=== PATIENT | female | born 1955 | race Caucasian/White ===

== ENCOUNTER 2017-07-09 07:27 | Inpatient (IN) ==
[2017-07-09] MEDS ORDERED: SODIUM CHLORIDE 0.9% 1,000 ML IV STA (09:19)
[2017-07-09] MEDS ORDERED: cefOXitin 2,000 MG in SYRINGE 1 EACH IV ONE ×2 (09:24→10:00)
[2017-07-09] MEDS: LACTATED RINGERS 1,000 ML IV SCH ×4 (10:10→18:40)
[2017-07-09] MEDS ORDERED: LIDOCAINE 1%/EPI INJ 20 ML VIAL ONE (10:45)
[2017-07-09] MEDS ORDERED: BUPIVACAINE 0.25% 50 ML VIAL ONE (10:45)
[2017-07-09] MEDS ORDERED: TISSUE ADHESIVE 1 EACH APPLICATOR TOP ONE (10:45)
[2017-07-09] MEDS ORDERED: SUGAMMADEX 200 MG/2 ML VIAL IV ONE (11:31)
[2017-07-09] MEDS ORDERED: SEVOFLURANE 1 UNIT/15 MINUTE INH ONE (11:50)
[2017-07-09] MEDS ORDERED: ePHEDrine 50 MG/ML AMP ONE (11:50)
[2017-07-09] MEDS ORDERED: MIDAZOLAM 2 MG/2 ML VIAL ONE (11:50)
[2017-07-09] MEDS ORDERED: PROPOFOL 200 MG/20 ML VIAL IV ONE (11:50)
[2017-07-09] MEDS ORDERED: ONDANSETRON 4 MG/2 ML VIAL ONE ×2 (11:50→12:06)
[2017-07-09] MEDS ORDERED: DEXAMETHASONE 10 MG/1 ML VIAL ONE (11:50)
[2017-07-09] MEDS ORDERED: fentaNYL 100 MCG/2 ML VIAL ONE (11:50)
[2017-07-09] MEDS ORDERED: SUCCINYLCHOLINE 200 MG/10 ML VIAL ONE (11:51)
[2017-07-09] MEDS ORDERED: GLYCOPYRROLATE 0.4 MG/2 ML VIAL ONE (11:51)
[2017-07-09] MEDS ORDERED: LACTATED RINGERS 2,000 ML IV ONE (11:51)
[2017-07-09] MEDS ORDERED: KETOROLAC 30 MG/1 ML VIAL ONE (11:51)
[2017-07-09] MEDS ORDERED: ROCURONIUM 100 MG/10 ML VIAL IV ONE (11:51)
[2017-07-09] MEDS ORDERED: NEOSTIGMINE 10 MG/10 ML VIAL ONE (11:51)
[2017-07-09] MEDS ORDERED: ONDANSETRON 4 MG/2 ML VIAL IV PRN ×2 (12:03→12:55)
[2017-07-09] MEDS ORDERED: HYDROmorphone 2 MG/1 ML VIAL IV PRN (12:03)
[2017-07-09] MEDS ORDERED: HYDROmorphone 2 MG/1 ML VIAL ONE (12:06)
[2017-07-09] MEDS ORDERED: LACTATED RINGERS 1,000 ML IV SCH (12:30)
[2017-07-09] MEDS ORDERED: PROMETHAZINE 25 MG/1 ML VIAL IM PRN (12:55)
[2017-07-09] MEDS ORDERED: KETOROLAC 15 MG/1 ML VIAL IV SCH (12:55)
[2017-07-09] MEDS ORDERED: ALBUTEROL 2.5 MG/3 ML NEB RESP TX PRN (15:00)
[2017-07-09] MEDS: KETOROLAC 15 MG/1 ML VIAL IV SCH (17:45)
[2017-07-09] MEDS: BUDESONIDE/FORMOTEROL 160-4.5 INHALER 6 GM INH SCH (21:23)
[2017-07-10] MEDS: KETOROLAC 15 MG/1 ML VIAL IV SCH ×4 (00:49→17:50)
[2017-07-10] MEDS: LACTATED RINGERS 1,000 ML IV SCH ×3 (02:43→19:45)
[2017-07-10] MEDS: LEVOTHYROXINE 75 MCG TABLET PO SCH (06:37)
[2017-07-10] MEDS: ENOXAPARIN 40 MG/0.4 ML SYRINGE SUBCUT SCH (06:37)
[2017-07-10 07:14] LABS: Basophils % 0.2 % (0.0-0.8); Eosinophils # 0.1 10*3/uL (0.0-0.87); Eosinophils % 0.4 % (0.00-10.9); Hematocrit 37.4 VOL% (35.7-47.0); Hemoglobin 12.2 GM/DL (12.0-16.0); Immature Granulocytes % 0.4 %; Immature Granulocytes Absolute 0.07 #; Lymphocytes # 2.1 10*3/uL (1.4-4.0); Mean Corpuscular HGB Conc 32.6 GM/DL (32-36); Mean Corpuscular Hemoglobin 30 PG (27-34); Mean Corpuscular Volume 91.9 FL (87-102); Monocytes # 1.1 10*3/uL (0.11-0.8); Monocytes % 6.5 % (1.7-12.7); Neutrophils % 80.5 % (38.7-73.9); Platelet Count 241 T/CUMM (130-400); Red Blood Count 4.07 MC/CUMM (3.8-5.5); Red Cell Distribution Width 13.5 % (9.3-17.3); White Blood Count 17.4 T/CUMM (4-12)
[2017-07-10 07:49] LABS: Calcium 9.2 MG/DL (8.5-10.1); Osmolality,Calculated 282.3 MOS/KG (273-304); Potassium 4.1 MMOL/L (3.5-5.1)
[2017-07-10] MEDS: amLODIPine 10 MG TABLET PO SCH (09:38)
[2017-07-10] MEDS: PANTOPRAZOLE 40 MG TABLET PO SCH (09:38)
[2017-07-10] MEDS: BUDESONIDE/FORMOTEROL 160-4.5 INHALER 6 GM INH SCH ×2 (09:38→21:11)
[2017-07-10] MEDS: ROSUVASTATIN 20 MG TABLET PO SCH (09:38)
[2017-07-10] MEDS: HYDROmorphone 2 MG/1 ML VIAL IV PRN ×2 (11:56→22:24)
[2017-07-11] MEDS: KETOROLAC 15 MG/1 ML VIAL IV SCH ×2 (00:46→06:08)
[2017-07-11] MEDS: LACTATED RINGERS 1,000 ML IV SCH (03:46)
[2017-07-11 05:44] LABS: Basophils # 0.1 10*3/uL (0.0-0.2); Basophils % 0.6 % (0.0-0.8); Eosinophils # 0.4 10*3/uL (0.0-0.87); Eosinophils % 4.2 % (0.00-10.9); Hematocrit 37.2 VOL% (35.7-47.0); Hemoglobin 12.2 GM/DL (12.0-16.0); Immature Granulocytes % 0.4 %; Immature Granulocytes Absolute 0.04 #; Lymphocytes # 2.9 10*3/uL (1.4-4.0); Lymphocytes % 28.5 % (21.3-54.2); Mean Corpuscular HGB Conc 32.8 GM/DL (32-36); Mean Corpuscular Hemoglobin 30 PG (27-34); Mean Corpuscular Volume 91.4 FL (87-102); Mean Platelet Volume 10.5 FL (9.6-12.0); Monocytes # 1.1 10*3/uL (0.11-0.8); Monocytes % 10.4 % (1.7-12.7); Neutrophils # 5.8 10*3/uL (1.4-7.4); Neutrophils % 55.9 % (38.7-73.9); Platelet Count 243 T/CUMM (130-400); Red Blood Count 4.07 MC/CUMM (3.8-5.5); White Blood Count 10.3 T/CUMM (4-12)
[2017-07-11] MEDS: ENOXAPARIN 40 MG/0.4 ML SYRINGE SUBCUT SCH (06:09)
[2017-07-11] MEDS: LEVOTHYROXINE 75 MCG TABLET PO SCH (06:09)
[2017-07-11 06:18] LABS: Osmolality,Calculated 287.7 MOS/KG (273-304); Potassium 4.1 MMOL/L (3.5-5.1)
[2017-07-11 08:35] VITALS: BP 127/67
[2017-07-11] MEDS: BUDESONIDE/FORMOTEROL 160-4.5 INHALER 6 GM INH SCH (09:27)
[2017-07-11] MEDS: PANTOPRAZOLE 40 MG TABLET PO SCH (09:29)
[2017-07-11] MEDS: ROSUVASTATIN 20 MG TABLET PO SCH (09:29)
[2017-07-11] MEDS: amLODIPine 10 MG TABLET PO SCH (09:29)
== END 2017-07-11 11:45 | disposition home or self-care (01) | DRG 337 ==
LOC: EDUNIT# → EDBD → N.ED 07:27 → N.3E 09:59 → N.EDINP 11:27 → N.3E 12:54
PROVIDERS: ADMIT Surgery; ATTEND Surgery

== ENCOUNTER 2019-05-01 09:20 | Inpatient (IN) ==
[2019-05-01] MEDS ORDERED: AMINOPHYLLINE 250 MG in SODIUM CHLORIDE 0.9% 100 ML IV ONE (11:00)
[2019-05-01] MEDS ORDERED: ONDANSETRON 4 MG/2 ML VIAL IV PRN (11:04)
[2019-05-01] MEDS ORDERED: INFLUENZA VIRUS VACCINE 0.5 ML SYRINGE IM ONE (11:20)
[2019-05-01] MEDS: methylPREDNISolone SOD SUC 40 MG/1 ML VIAL IV SCH ×2 (12:03→23:23)
[2019-05-01] MEDS: ACETAMINOPHEN 325 MG TABLET PO PRN ×2 (13:12→20:51)
[2019-05-01] MEDS: ALBUTEROL 2 MG TABLET PO SCH (13:18)
[2019-05-01 13:33] LABS: Basophils # 0.1 10*3/uL (0.0-0.2); Basophils % 0.6 % (0.0-0.8); Eosinophils # 0.2 10*3/uL (0.0-0.87); Eosinophils % 1.5 % (0.00-10.9); Hematocrit 42.6 VOL% (35.7-47.0); Immature Granulocytes % 0.6 %; Immature Granulocytes Absolute 0.07 #; Lymphocytes # 4.1 10*3/uL (1.4-4.0); Lymphocytes % 35.1 % (21.3-54.2); Mean Corpuscular HGB Conc 32.9 GM/DL (32-36); Mean Corpuscular Volume 89.3 FL (87-102); Mean Platelet Volume 9.8 FL (9.6-12.0); Monocytes % 8.2 % (1.7-12.7); Platelet Count 266 T/CUMM (130-400); Red Blood Count 4.77 MC/CUMM (3.8-5.5); Red Cell Distribution Width 14.5 % (9.3-17.3); White Blood Count 11.6 T/CUMM (4-12)
[2019-05-01 13:55] LABS: Alanine Aminotransferase 38 U/L (13-56); Albumin 3.3 G/DL (3.4-5.0); Alkaline Phosphatase 94 U/L (45-117); Aspartate Amino Transferase 29 U/L (0-37); Bilirubin,Total < 0.39 MG/DL (0.2-1.0); Blood Urea Nitrogen 13 MG/DL (7-18); Calcium 9.1 MG/DL (8.5-10.1); Estimated Glom Filtration Rate 48 ML/MIN; Glucose 156 MG/DL (74-106); Osmolality,Calculated 279.5 MOS/KG (273-304); Total Protein 6.8 G/DL (6.4-8.3)
[2019-05-01] MEDS: HYDROcodone/HOMATROPINE 5 ML UDCUP PO PRN (14:40)
[2019-05-01] MEDS: AMINOPHYLLINE 500 MG in SODIUM CHLORIDE 0.9% 480 ML IV SCH (15:25)
[2019-05-01 16:09] LABS: Apearance,Urine CLEAR (Clear); Bilirubin,Urine Negative (Negative); Blood, Urine Negative (Negative); Glucose,Urine (UA) Negative (Negative); Ketones,Urine Negative (Negative); Nitrite,Urine Negative (Negative); Protein,Urine Negative; Squamous Epithelial Cell,Urine Occasional /HPF (0-10); Urine Color Yellow (Yellow); Urine Specific Gravity 1.008 (1.001-1.035); Urine Urobilinogen < 2.0 EU/DL (0.2-1.0)
[2019-05-01] MEDS: ALBUTEROL/IPRATROPIUM 3 ML NEB RESP TX SCH ×3 (18:27→23:00)
[2019-05-01] MEDS: MONTELUKAST 10 MG TABLET PO SCH (20:50)
[2019-05-01] MEDS: RANITIDINE 150 MG TABLET PO SCH (20:50)
[2019-05-01] MEDS: GABAPENTIN 100 MG CAPSULE PO SCH (20:51)
[2019-05-01] MEDS: PANTOPRAZOLE 40 MG TABLET PO SCH (20:51)
[2019-05-02] MEDS: ALBUTEROL 2 MG TABLET PO SCH ×3 (00:43→14:01)
[2019-05-02] MEDS: ALBUTEROL/IPRATROPIUM 3 ML NEB RESP TX SCH ×4 (03:45→16:12)
[2019-05-02 05:40] LABS: Basophils % 0.1 % (0.0-0.8); Hematocrit 42.1 VOL% (35.7-47.0); Hemoglobin 13.6 GM/DL (12.0-16.0); Immature Granulocytes % 1.1 %; Immature Granulocytes Absolute 0.18 #; Lymphocytes % 12.4 % (21.3-54.2); Mean Corpuscular HGB Conc 32.3 GM/DL (32-36); Mean Platelet Volume 10.2 FL (9.6-12.0); Monocytes % 3.9 % (1.7-12.7); Neutrophils % 82.5 % (38.7-73.9); Platelet Count 275 T/CUMM (130-400); Red Blood Count 4.68 MC/CUMM (3.8-5.5); Red Cell Distribution Width 14.5 % (9.3-17.3)
[2019-05-02 05:56] LABS: Albumin 3.2 G/DL (3.4-5.0); Bilirubin,Total 0.4 MG/DL (0.2-1.0); Calcium 9.1 MG/DL (8.5-10.1); Osmolality,Calculated 287.3 MOS/KG (273-304); Total Protein 6.8 G/DL (6.4-8.3)
[2019-05-02] MEDS: LEVOTHYROXINE 88 MCG TABLET PO SCH (06:03)
[2019-05-02 06:08] LABS: Risk Ratio 1.84
[2019-05-02] MEDS ORDERED: PANTOPRAZOLE 40 MG TABLET PO SCH (09:00)
[2019-05-02] MEDS: MONTELUKAST 10 MG TABLET PO SCH ×2 (09:23→21:16)
[2019-05-02] MEDS: GABAPENTIN 100 MG CAPSULE PO SCH ×2 (09:23→21:17)
[2019-05-02] MEDS: ROSUVASTATIN 20 MG TABLET PO SCH (09:23)
[2019-05-02] MEDS: PANTOPRAZOLE 40 MG TABLET PO SCH ×2 (09:23→21:14)
[2019-05-02] MEDS: METOPROLOL SUCCINATE XL 50 MG TABLET PO SCH (09:23)
[2019-05-02] MEDS: RANITIDINE 150 MG TABLET PO SCH ×2 (09:23→21:14)
[2019-05-02] MEDS: amLODIPine 10 MG TABLET PO SCH (09:24)
[2019-05-02] MEDS: ACETAMINOPHEN 325 MG TABLET PO PRN (09:36)
[2019-05-02] MEDS: HYDROcodone/HOMATROPINE 5 ML UDCUP PO PRN ×3 (09:37→21:28)
[2019-05-02] MEDS: methylPREDNISolone SOD SUC 40 MG/1 ML VIAL IV SCH ×2 (11:23→23:52)
[2019-05-02] MEDS: DORNASE ALFA 2.5 MG/2.5 ML VIAL RESP TX SCH ×2 (11:46→20:44)
[2019-05-02] MEDS: BENZONATATE 100 MG CAPSULE PO SCH ×2 (15:20→21:16)
[2019-05-02] MEDS: ENOXAPARIN 40 MG/0.4 ML SYRINGE SUBCUT SCH (15:21)
[2019-05-02] MEDS ORDERED: IPRATROPIUM 500 MCG/2.5 ML NEB RESP TX PRN (16:26)
[2019-05-02] MEDS: IPRATROPIUM 500 MCG/2.5 ML NEB RESP TX SCH (20:38)
[2019-05-02] MEDS: AMINOPHYLLINE 500 MG in SODIUM CHLORIDE 0.9% 480 ML IV SCH (21:45)
[2019-05-03] MEDS: IPRATROPIUM 500 MCG/2.5 ML NEB RESP TX SCH ×4 (00:11→19:28)
[2019-05-03 05:51] LABS: Basophils % 0.2 % (0.0-0.8); Hematocrit 42.3 VOL% (35.7-47.0); Hemoglobin 13.7 GM/DL (12.0-16.0); Immature Granulocytes % 1.6 %; Immature Granulocytes Absolute 0.37 #; Lymphocytes # 2.2 10*3/uL (1.4-4.0); Lymphocytes % 9.6 % (21.3-54.2); Mean Corpuscular HGB Conc 32.4 GM/DL (32-36); Mean Corpuscular Volume 91.2 FL (87-102); Mean Platelet Volume 10.4 FL (9.6-12.0); Monocytes % 4.8 % (1.7-12.7); Neutrophils % 83.8 % (38.7-73.9); Platelet Count 259 T/CUMM (130-400); Red Blood Count 4.64 MC/CUMM (3.8-5.5); Red Cell Distribution Width 15.3 % (9.3-17.3); White Blood Count 22.6 T/CUMM (4-12)
[2019-05-03 06:00] LABS: Bilirubin,Total 0.4 MG/DL (0.2-1.0); Calcium 9.6 MG/DL (8.5-10.1); Osmolality,Calculated 286.1 MOS/KG (273-304); Total Protein 6.6 G/DL (6.4-8.3)
[2019-05-03] MEDS: LEVOTHYROXINE 88 MCG TABLET PO SCH (06:15)
[2019-05-03 06:18] LABS: Lymphocytes 8 % (20-55); Platelet Estimate Normal; Segmented Neutrophils 90 % (50-85); Total Cells Counted 100
[2019-05-03 06:19] LABS: Polychromasia Slight
[2019-05-03] MEDS: DORNASE ALFA 2.5 MG/2.5 ML VIAL RESP TX SCH ×2 (08:05→19:28)
[2019-05-03] MEDS: GABAPENTIN 100 MG CAPSULE PO SCH ×2 (09:26→20:47)
[2019-05-03] MEDS: METOPROLOL SUCCINATE XL 50 MG TABLET PO SCH (09:26)
[2019-05-03] MEDS: amLODIPine 10 MG TABLET PO SCH (09:27)
[2019-05-03] MEDS: RANITIDINE 150 MG TABLET PO SCH ×2 (09:27→20:47)
[2019-05-03] MEDS: MONTELUKAST 10 MG TABLET PO SCH ×2 (09:27→20:47)
[2019-05-03] MEDS: BENZONATATE 100 MG CAPSULE PO SCH ×3 (09:27→20:47)
[2019-05-03] MEDS: PANTOPRAZOLE 40 MG TABLET PO SCH ×2 (09:27→20:48)
[2019-05-03] MEDS: ROSUVASTATIN 20 MG TABLET PO SCH (09:27)
[2019-05-03] MEDS: methylPREDNISolone SOD SUC 40 MG/1 ML VIAL IV SCH ×2 (11:23→22:40)
[2019-05-03] MEDS: MEROPENEM 500 MG in SODIUM CHLORIDE 0.9% 100 ML IV SCH ×2 (11:25→17:48)
[2019-05-03] MEDS: HYDROcodone/HOMATROPINE 5 ML UDCUP PO PRN ×2 (11:30→22:40)
[2019-05-03] MEDS: ENOXAPARIN 40 MG/0.4 ML SYRINGE SUBCUT SCH (16:19)
[2019-05-03] MEDS: AMINOPHYLLINE 500 MG in SODIUM CHLORIDE 0.9% 480 ML IV SCH (18:00)
[2019-05-04] MEDS: IPRATROPIUM 500 MCG/2.5 ML NEB RESP TX SCH ×4 (00:14→19:04)
[2019-05-04] MEDS: MEROPENEM 500 MG in SODIUM CHLORIDE 0.9% 100 ML IV SCH ×4 (02:40→23:09)
[2019-05-04 05:40] LABS: Basophils % 0.2 % (0.0-0.8); Hemoglobin 12.8 GM/DL (12.0-16.0); Immature Granulocytes % 2.9 %; Immature Granulocytes Absolute 0.54 #; Lymphocytes # 2.3 10*3/uL (1.4-4.0); Lymphocytes % 12.4 % (21.3-54.2); Mean Corpuscular Volume 91.7 FL (87-102); Mean Platelet Volume 9.9 FL (9.6-12.0); Monocytes % 5.7 % (1.7-12.7); Neutrophils % 78.8 % (38.7-73.9); Platelet Count 271 T/CUMM (130-400); Red Blood Count 4.36 MC/CUMM (3.8-5.5); Red Cell Distribution Width 15.4 % (9.3-17.3); White Blood Count 18.5 T/CUMM (4-12)
[2019-05-04 05:48] LABS: Calcium 8.8 MG/DL (8.5-10.1); Osmolality,Calculated 286.1 MOS/KG (273-304)
[2019-05-04 06:08] LABS: Eosinophils 1 % (0-10); Hypochromasia 1+; Lymphocytes 9 % (20-55); Platelet Estimate Adequate; Segmented Neutrophils 86 % (50-85); Total Cells Counted 100
[2019-05-04] MEDS: LEVOTHYROXINE 88 MCG TABLET PO SCH (06:46)
[2019-05-04] MEDS: DORNASE ALFA 2.5 MG/2.5 ML VIAL RESP TX SCH ×2 (08:46→19:11)
[2019-05-04] MEDS: amLODIPine 10 MG TABLET PO SCH (10:19)
[2019-05-04] MEDS: METOPROLOL SUCCINATE XL 50 MG TABLET PO SCH (10:19)
[2019-05-04] MEDS: ROSUVASTATIN 20 MG TABLET PO SCH (10:20)
[2019-05-04] MEDS: RANITIDINE 150 MG TABLET PO SCH ×2 (10:20→21:21)
[2019-05-04] MEDS: THEOPHYLLINE ER 300 MG TABLET PO SCH ×2 (10:20→16:27)
[2019-05-04] MEDS: MONTELUKAST 10 MG TABLET PO SCH ×2 (10:21→21:22)
[2019-05-04] MEDS: BENZONATATE 100 MG CAPSULE PO SCH ×3 (10:21→21:21)
[2019-05-04] MEDS: GABAPENTIN 100 MG CAPSULE PO SCH ×2 (10:21→21:21)
[2019-05-04] MEDS: PANTOPRAZOLE 40 MG TABLET PO SCH ×2 (10:21→21:21)
[2019-05-04] MEDS: methylPREDNISolone SOD SUC 40 MG/1 ML VIAL IV SCH ×2 (12:43→23:16)
[2019-05-04] MEDS: HYDROcodone/HOMATROPINE 5 ML UDCUP PO PRN (14:55)
[2019-05-04] MEDS: ENOXAPARIN 40 MG/0.4 ML SYRINGE SUBCUT SCH (14:56)
[2019-05-05] MEDS: IPRATROPIUM 500 MCG/2.5 ML NEB RESP TX SCH ×2 (00:24→07:24)
[2019-05-05] MEDS: MEROPENEM 500 MG in SODIUM CHLORIDE 0.9% 100 ML IV SCH ×2 (05:14→09:38)
[2019-05-05 05:26] LABS: Basophils # 0.1 10*3/uL (0.0-0.2); Basophils % 0.4 % (0.0-0.8); Hematocrit 43.1 VOL% (35.7-47.0); Immature Granulocytes % 4.3 %; Immature Granulocytes Absolute 0.76 #; Lymphocytes # 2.6 10*3/uL (1.4-4.0); Lymphocytes % 14.7 % (21.3-54.2); Mean Corpuscular HGB Conc 32.5 GM/DL (32-36); Mean Corpuscular Volume 91.1 FL (87-102); Monocytes % 5.9 % (1.7-12.7); NRBC # 0.02 10*3/uL; Neutrophils % 74.7 % (38.7-73.9); Platelet Count 290 T/CUMM (130-400); Red Blood Count 4.73 MC/CUMM (3.8-5.5); Red Cell Distribution Width 15.4 % (9.3-17.3); White Blood Count 17.6 T/CUMM (4-12)
[2019-05-05 05:59] LABS: Calcium 8.4 MG/DL (8.5-10.1)
[2019-05-05 06:15] LABS: Band Neutrophils 2 % (0-10); Lymphocytes 15 % (20-55); Segmented Neutrophils 73 % (50-85); Total Cells Counted 100
[2019-05-05 06:16] LABS: Anisocytosis 1+; Platelet Estimate Normal
[2019-05-05] MEDS: LEVOTHYROXINE 88 MCG TABLET PO SCH (06:20)
[2019-05-05] MEDS: DORNASE ALFA 2.5 MG/2.5 ML VIAL RESP TX SCH (07:24)
[2019-05-05] MEDS: ROSUVASTATIN 20 MG TABLET PO SCH (09:32)
[2019-05-05] MEDS: BENZONATATE 100 MG CAPSULE PO SCH (09:32)
[2019-05-05] MEDS: GABAPENTIN 100 MG CAPSULE PO SCH (09:32)
[2019-05-05] MEDS: RANITIDINE 150 MG TABLET PO SCH (09:32)
[2019-05-05] MEDS: PANTOPRAZOLE 40 MG TABLET PO SCH (09:32)
[2019-05-05] MEDS: METOPROLOL SUCCINATE XL 50 MG TABLET PO SCH (09:33)
[2019-05-05] MEDS: MONTELUKAST 10 MG TABLET PO SCH (09:33)
[2019-05-05] MEDS: amLODIPine 10 MG TABLET PO SCH (09:33)
[2019-05-05] MEDS: THEOPHYLLINE ER 300 MG TABLET PO SCH (09:33)
[2019-05-05 09:47] VITALS: BP 118/72
== END 2019-05-05 11:31 | disposition home or self-care (01) | DRG 191 ==
LOC: N.2W → SUATTDRO 09:47 → N.5E 05-03 13:51
PROVIDERS: ADMIT Internal Medicine; ATTEND Internal Medicine

== ENCOUNTER 2021-11-07 10:20 | Inpatient (IN) ==
[2021-11-07] MEDS ORDERED: methylPREDNISolone SOD SUC 125 MG/2 ML VIAL IV STA (10:54)
[2021-11-07] MEDS ORDERED: ALBUTEROL/IPRATROPIUM 3 ML NEB RESP TX STA (10:54)
[2021-11-07 11:32] LABS: Arterial Base Excess iSTAT 1 MMOL/L (-2.5-2.5); Arterial Bicarbonate iSTAT 25.2 MMOL/L (20-26); Arterial O2 Saturation iSTAT 93 % (95-100); Arterial PCO2 iSTAT 39 MM HG (35-48); Arterial PO2 iSTAT 66 MM HG (80-95); Arterial Total CO2 iSTAT 26 MMO/L (23-27); Arterial pH iSTAT 7.414 (7.35-7.45)
[2021-11-07 11:47] LABS: Basophils % 0.4 % (0.0-0.8); Eosinophils # 0.1 10*3/uL (0.0-0.87); Eosinophils % 1.1 % (0.00-10.9); Hemoglobin 12.7 GM/DL (12.0-16.0); Immature Granulocytes % 1.7 %; Immature Granulocytes Absolute 0.16 #; Lymphocytes # 2.6 10*3/uL (1.4-4.0); Lymphocytes % 27.4 % (21.3-54.2); Mean Corpuscular Volume 85.1 FL (87-102); Mean Platelet Volume 9.4 FL (9.6-12.0); Monocytes # 0.9 10*3/uL (0.11-0.8); Monocytes % 9.7 % (1.7-12.7); NRBC # 0.02 10*3/uL; Neutrophils % 59.7 % (38.7-73.9); Platelet Count 201 T/CUMM (130-400); Red Blood Count 4.82 MC/CUMM (3.8-5.5); Red Cell Distribution Width 18.3 % (9.3-17.3); White Blood Count 9.6 T/CUMM (4-12)
[2021-11-07 12:06] LABS: Partial Thromboplastin Time 23.9 SECS (23.7-32.9)
[2021-11-07 12:10] LABS: Alanine Aminotransferase 28 U/L (13-56); Albumin 2.6 G/DL (3.4-5.0); Alkaline Phosphatase 73 U/L (45-117); Aspartate Amino Transferase 20 U/L (0-37); Bilirubin,Total < 0.39 MG/DL (0.20-1.00); Blood Urea Nitrogen 10 MG/DL (7-18); Calcium 8.7 MG/DL (8.5-10.1); Carbon Dioxide 26 MMOL/L (21-32); Chloride 110 MMOL/L (98-107); Glucose 88 MG/DL (74-106); Osmolality,Calculated 278.3 MOS/KG (273-304); Potassium 4.1 MMOL/L (3.5-5.1); Sodium 141 MMOL/L (136-145); Total Protein 5.7 G/DL (6.4-8.2)
[2021-11-07] MEDS ORDERED: HEPARIN 5,000 UNIT/1 ML VIAL IV STA (12:57)
[2021-11-07] MEDS: HEPARIN DRIP 25,000 UNITS/500 ML PREMIX IV SCH (13:34)
[2021-11-07] MEDS: NICOTINE 14 MG/24 HR PATCH TRANSDERM SCH (16:29)
[2021-11-07] MEDS ORDERED: ALBUTEROL 2.5 MG/3 ML NEB RESP TX PRN (17:22)
[2021-11-07] MEDS ORDERED: ONDANSETRON 4 MG/2 ML VIAL IV PRN (17:24)
[2021-11-07] MEDS ORDERED: ACETAMINOPHEN 325 MG TABLET PO PRN (17:24)
[2021-11-07] MEDS ORDERED: NITROGLYCERIN SL 0.4 MG TABLET SL SCH (17:30)
[2021-11-07] MEDS ORDERED: NITROGLYCERIN SL 0.4 MG TABLET SL PRN (17:47)
[2021-11-07] MEDS: methylPREDNISolone SOD SUC 40 MG/1 ML VIAL IV SCH (18:16)
[2021-11-07] MEDS: cefTRIAXone 1,000 MG in SODIUM CHLORIDE 0.9% 100 ML IV SCH (18:16)
[2021-11-07] MEDS: ALBUTEROL/IPRATROPIUM 3 ML NEB RESP TX SCH (18:42)
[2021-11-07] MEDS: GABAPENTIN 300 MG CAPSULE PO SCH (21:45)
[2021-11-07] MEDS: BUDESONIDE/FORMOTEROL 160-4.5 INHALER 6 GM INH SCH (21:45)
[2021-11-07] MEDS: AMITRIPTYLINE 10 MG TABLET PO SCH (21:45)
[2021-11-07] MEDS: CETIRIZINE 10 MG TABLET PO SCH (21:45)
[2021-11-07] MEDS: rOPINIRole 1 MG TABLET PO SCH (21:46)
[2021-11-07] MEDS: PANTOPRAZOLE 40 MG TABLET PO SCH (22:19)
[2021-11-07] MEDS: FAMOTIDINE 20 MG TABLET PO SCH (22:19)
[2021-11-08 03:04] LABS: Basophils % 0.2 % (0.0-0.8); Hematocrit 38.8 VOL% (35.7-47.0); Hemoglobin 12.1 GM/DL (12.0-16.0); Immature Granulocytes % 1.9 %; Lymphocytes # 1.3 10*3/uL (1.4-4.0); Mean Corpuscular HGB Conc 31.2 GM/DL (32-36); Mean Corpuscular Volume 85.3 FL (87-102); Mean Platelet Volume 9.8 FL (9.6-12.0); Monocytes # 0.4 10*3/uL (0.11-0.8); Monocytes % 3.5 % (1.7-12.7); Neutrophils % 82.4 % (38.7-73.9); Platelet Count 199 T/CUMM (130-400); Red Blood Count 4.55 MC/CUMM (3.8-5.5); Red Cell Distribution Width 18.2 % (9.3-17.3); White Blood Count 10.5 T/CUMM (4-12)
[2021-11-08 03:21] LABS: Alanine Aminotransferase 27 U/L (13-56); Albumin 2.5 G/DL (3.4-5.0); Alkaline Phosphatase 72 U/L (45-117); Aspartate Amino Transferase 11 U/L (0-37); Bilirubin,Total < 0.39 MG/DL (0.20-1.00); Blood Urea Nitrogen 15 MG/DL (7-18); Carbon Dioxide 26 MMOL/L (21-32); Chloride 106 MMOL/L (98-107); Glucose 258 MG/DL (74-106); Osmolality,Calculated 288.4 MOS/KG (273-304); Potassium 3.9 MMOL/L (3.5-5.1); Sodium 140 MMOL/L (136-145)
[2021-11-08 03:31] LABS: Arterial Base Excess iSTAT 2 MMOL/L (-2.5-2.5); Arterial Bicarbonate iSTAT 27.1 MMOL/L (20-26); Arterial O2 Saturation iSTAT 96 % (95-100); Arterial PCO2 iSTAT 44 MM HG (35-48); Arterial PO2 iSTAT 85 MM HG (80-95); Arterial Total CO2 iSTAT 28 MMO/L (23-27); Arterial pH iSTAT 7.394 (7.35-7.45)
[2021-11-08] MEDS: methylPREDNISolone SOD SUC 40 MG/1 ML VIAL IV SCH ×2 (06:00→17:15)
[2021-11-08] MEDS: LEVOTHYROXINE 100 MCG TABLET PO SCH (06:00)
[2021-11-08] MEDS: ALBUTEROL/IPRATROPIUM 3 ML NEB RESP TX SCH ×4 (07:10→18:47)
[2021-11-08] MEDS: BUDESONIDE/FORMOTEROL 160-4.5 INHALER 6 GM INH SCH ×2 (08:13→22:03)
[2021-11-08] MEDS: PANTOPRAZOLE 40 MG TABLET PO SCH ×2 (08:14→20:30)
[2021-11-08] MEDS: FAMOTIDINE 20 MG TABLET PO SCH (08:14)
[2021-11-08] MEDS: ROSUVASTATIN 20 MG TABLET PO SCH (08:14)
[2021-11-08] MEDS: AMITRIPTYLINE 10 MG TABLET PO SCH ×2 (08:14→20:31)
[2021-11-08] MEDS: GABAPENTIN 300 MG CAPSULE PO SCH ×3 (08:15→20:29)
[2021-11-08] MEDS: CETIRIZINE 10 MG TABLET PO SCH ×2 (08:17→20:29)
[2021-11-08] MEDS: HEPARIN DRIP 25,000 UNITS/500 ML PREMIX IV SCH ×2 (09:02→14:23)
[2021-11-08] MEDS: NICOTINE 14 MG/24 HR PATCH TRANSDERM SCH (10:43)
[2021-11-08] MEDS: APIXABAN 5 MG TABLET PO SCH ×2 (11:35→20:30)
[2021-11-08] MEDS ORDERED: DIAZEPAM 10 MG/2 ML SYRINGE IV PRN (13:07)
[2021-11-08] MEDS ORDERED: MORPHINE 2 MG/1 ML SYRINGE IV PRN (13:23)
[2021-11-08] MEDS ORDERED: GLUCAGON 1 MG VIAL IM PRN (16:53)
[2021-11-08] MEDS ORDERED: DEXTROSE 10% 250 ML BAG IV PRN (16:57)
[2021-11-08] MEDS: cefTRIAXone 1,000 MG in SODIUM CHLORIDE 0.9% 100 ML IV SCH (17:52)
[2021-11-08] MEDS: rOPINIRole 1 MG TABLET PO SCH (20:28)
[2021-11-08] MEDS: ZALEPLON 5 MG CAPSULE PO PRN (20:31)
[2021-11-08] MEDS: INSULIN LISPRO 100 UNIT/ML SUBCUT SCH (22:03)
[2021-11-09] MEDS: methylPREDNISolone SOD SUC 40 MG/1 ML VIAL IV SCH ×2 (05:18→17:08)
[2021-11-09] MEDS: LEVOTHYROXINE 100 MCG TABLET PO SCH (05:18)
[2021-11-09 05:45] LABS: Calcium 8.8 MG/DL (8.5-10.1); Osmolality,Calculated 291.8 MOS/KG (273-304); Potassium 3.5 MMOL/L (3.5-5.1)
[2021-11-09] MEDS: ALBUTEROL/IPRATROPIUM 3 ML NEB RESP TX SCH ×5 (07:32→21:02)
[2021-11-09] MEDS: INSULIN LISPRO 100 UNIT/ML SUBCUT SCH ×4 (08:01→21:16)
[2021-11-09] MEDS: GABAPENTIN 300 MG CAPSULE PO SCH ×3 (08:01→21:16)
[2021-11-09] MEDS: CETIRIZINE 10 MG TABLET PO SCH ×2 (08:01→21:16)
[2021-11-09] MEDS: AMITRIPTYLINE 10 MG TABLET PO SCH ×2 (08:02→21:16)
[2021-11-09] MEDS: MONTELUKAST 10 MG TABLET PO SCH (08:02)
[2021-11-09] MEDS: ROSUVASTATIN 20 MG TABLET PO SCH (08:03)
[2021-11-09] MEDS: APIXABAN 5 MG TABLET PO SCH ×2 (08:03→21:16)
[2021-11-09] MEDS: PANTOPRAZOLE 40 MG TABLET PO SCH ×2 (08:04→21:16)
[2021-11-09] MEDS: BUDESONIDE/FORMOTEROL 160-4.5 INHALER 6 GM INH SCH ×2 (08:05→21:18)
[2021-11-09] MEDS: NICOTINE 14 MG/24 HR PATCH TRANSDERM SCH (08:05)
[2021-11-09] MEDS: oxyCODONE/ACETAMINOPHEN 5-325 MG TABLET PO PRN ×2 (15:01→21:16)
[2021-11-09] MEDS ORDERED: guaiFENesin/DM ER 600-30 MG TABLET PO PRN (15:46)
[2021-11-09] MEDS: cefTRIAXone 1,000 MG in SODIUM CHLORIDE 0.9% 100 ML IV SCH (17:06)
[2021-11-09] MEDS: rOPINIRole 1 MG TABLET PO SCH (21:15)
[2021-11-09] MEDS: ZALEPLON 5 MG CAPSULE PO PRN (21:25)
[2021-11-10] MEDS: ALBUTEROL/IPRATROPIUM 3 ML NEB RESP TX SCH ×4 (01:00→20:02)
[2021-11-10] MEDS: methylPREDNISolone SOD SUC 40 MG/1 ML VIAL IV SCH ×2 (05:18→18:02)
[2021-11-10] MEDS: LEVOTHYROXINE 100 MCG TABLET PO SCH (05:18)
[2021-11-10] MEDS: INSULIN LISPRO 100 UNIT/ML SUBCUT SCH ×4 (07:25→21:30)
[2021-11-10] MEDS: APIXABAN 5 MG TABLET PO SCH ×2 (09:10→21:30)
[2021-11-10] MEDS: CETIRIZINE 10 MG TABLET PO SCH ×2 (09:10→21:30)
[2021-11-10] MEDS: PANTOPRAZOLE 40 MG TABLET PO SCH ×2 (09:11→21:30)
[2021-11-10] MEDS: MONTELUKAST 10 MG TABLET PO SCH (09:11)
[2021-11-10] MEDS: GABAPENTIN 300 MG CAPSULE PO SCH ×3 (09:11→21:29)
[2021-11-10] MEDS: AMITRIPTYLINE 10 MG TABLET PO SCH ×2 (09:11→21:29)
[2021-11-10] MEDS: ROSUVASTATIN 20 MG TABLET PO SCH (09:11)
[2021-11-10] MEDS: BUDESONIDE/FORMOTEROL 160-4.5 INHALER 6 GM INH SCH ×2 (09:14→21:31)
[2021-11-10] MEDS: NICOTINE 14 MG/24 HR PATCH TRANSDERM SCH (09:15)
[2021-11-10 09:30] LABS: Basophils % 0.1 % (0.0-0.8); Hematocrit 35.6 VOL% (35.7-47.0); Hemoglobin 10.9 GM/DL (12.0-16.0); Immature Granulocytes % 2.5 %; Immature Granulocytes Absolute 0.37 #; Lymphocytes # 1.1 10*3/uL (1.4-4.0); Lymphocytes % 7.5 % (21.3-54.2); Mean Corpuscular HGB Conc 30.6 GM/DL (32-36); Mean Corpuscular Volume 86.6 FL (87-102); Mean Platelet Volume 9.4 FL (9.6-12.0); Monocytes # 0.7 10*3/uL (0.11-0.8); Neutrophils % 84.9 % (38.7-73.9); Platelet Count 222 T/CUMM (130-400); Red Blood Count 4.11 MC/CUMM (3.8-5.5); Red Cell Distribution Width 18.6 % (9.3-17.3); White Blood Count 14.5 T/CUMM (4-12)
[2021-11-10 10:04] LABS: Calcium 8.4 MG/DL (8.5-10.1); Osmolality,Calculated 294.3 MOS/KG (273-304); Potassium 4.4 MMOL/L (3.5-5.1)
[2021-11-10] MEDS: FAMOTIDINE 20 MG TABLET PO SCH ×2 (10:21→21:30)
[2021-11-10] MEDS: oxyCODONE/ACETAMINOPHEN 5-325 MG TABLET PO PRN ×2 (14:34→21:30)
[2021-11-10 14:59] LABS: Hematocrit 36.4 VOL% (35.7-47.0); Hemoglobin 11.1 GM/DL (12.0-16.0)
[2021-11-10] MEDS: cefTRIAXone 1,000 MG in SODIUM CHLORIDE 0.9% 100 ML IV SCH (18:08)
[2021-11-10] MEDS: rOPINIRole 1 MG TABLET PO SCH (21:29)
[2021-11-10] MEDS: guaiFENesin/DM ER 600-30 MG TABLET PO SCH (21:29)
[2021-11-10] MEDS: ZALEPLON 5 MG CAPSULE PO PRN (21:29)
[2021-11-10 21:33] LABS: Hematocrit 36.9 VOL% (35.7-47.0); Hemoglobin 11.1 GM/DL (12.0-16.0)
[2021-11-11] MEDS: ALBUTEROL/IPRATROPIUM 3 ML NEB RESP TX SCH ×4 (00:09→19:50)
[2021-11-11 04:48] LABS: Hematocrit 36.5 VOL% (35.7-47.0); Hemoglobin 10.9 GM/DL (12.0-16.0)
[2021-11-11 05:16] LABS: Alanine Aminotransferase 27 U/L (13-56); Albumin 2.4 G/DL (3.4-5.0); Alkaline Phosphatase 74 U/L (45-117); Aspartate Amino Transferase 13 U/L (0-37); Bilirubin,Total < 0.39 MG/DL (0.20-1.00); Blood Urea Nitrogen 26 MG/DL (7-18); Calcium 9.1 MG/DL (8.5-10.1); Carbon Dioxide 26 MMOL/L (21-32); Chloride 110 MMOL/L (98-107); Glucose 229 MG/DL (74-106); Osmolality,Calculated 292.3 MOS/KG (273-304); Potassium 4.1 MMOL/L (3.5-5.1); Sodium 141 MMOL/L (136-145); Total Protein 5.6 G/DL (6.4-8.2)
[2021-11-11] MEDS: LEVOTHYROXINE 100 MCG TABLET PO SCH (05:49)
[2021-11-11] MEDS: INSULIN LISPRO 100 UNIT/ML SUBCUT SCH ×4 (07:52→21:32)
[2021-11-11] MEDS: ROSUVASTATIN 20 MG TABLET PO SCH (08:20)
[2021-11-11] MEDS: CETIRIZINE 10 MG TABLET PO SCH ×2 (08:20→21:34)
[2021-11-11] MEDS: GABAPENTIN 300 MG CAPSULE PO SCH ×3 (08:20→21:34)
[2021-11-11] MEDS: AMITRIPTYLINE 10 MG TABLET PO SCH ×2 (08:20→21:33)
[2021-11-11] MEDS: APIXABAN 5 MG TABLET PO SCH (08:20)
[2021-11-11] MEDS: FAMOTIDINE 20 MG TABLET PO SCH ×2 (08:20→21:33)
[2021-11-11] MEDS: guaiFENesin/DM ER 600-30 MG TABLET PO SCH ×2 (08:20→21:33)
[2021-11-11] MEDS: PANTOPRAZOLE 40 MG TABLET PO SCH ×2 (08:20→21:33)
[2021-11-11] MEDS: BUDESONIDE/FORMOTEROL 160-4.5 INHALER 6 GM INH SCH ×2 (08:20→21:36)
[2021-11-11] MEDS ORDERED: DIAZEPAM 5 MG TABLET PO ONE (11:46)
[2021-11-11 13:19] LABS: Hematocrit 36.9 VOL% (35.7-47.0); Hemoglobin 11.2 GM/DL (12.0-16.0)
[2021-11-11] MEDS: MONTELUKAST 10 MG TABLET PO SCH (16:54)
[2021-11-11] MEDS: predniSONE 20 MG TABLET PO SCH (16:55)
[2021-11-11] MEDS: NICOTINE 14 MG/24 HR PATCH TRANSDERM SCH (16:56)
[2021-11-11] MEDS: cefTRIAXone 1,000 MG in SODIUM CHLORIDE 0.9% 100 ML IV SCH (18:13)
[2021-11-11] MEDS: rOPINIRole 1 MG TABLET PO SCH (21:33)
[2021-11-11] MEDS: oxyCODONE/ACETAMINOPHEN 5-325 MG TABLET PO PRN (21:34)
[2021-11-11] MEDS: ZALEPLON 5 MG CAPSULE PO PRN (21:34)
[2021-11-12] MEDS: ALBUTEROL/IPRATROPIUM 3 ML NEB RESP TX SCH ×4 (00:20→20:05)
[2021-11-12 04:44] LABS: Basophils # 0.1 10*3/uL (0.0-0.2); Basophils % 0.7 % (0.0-0.8); Hematocrit 38.3 VOL% (35.7-47.0); Hemoglobin 11.6 GM/DL (12.0-16.0); Immature Granulocytes % 6.4 %; Immature Granulocytes Absolute 0.71 #; Lymphocytes # 1.3 10*3/uL (1.4-4.0); Lymphocytes % 11.9 % (21.3-54.2); Mean Corpuscular HGB Conc 30.3 GM/DL (32-36); Mean Corpuscular Volume 87.4 FL (87-102); Mean Platelet Volume 9.7 FL (9.6-12.0); Monocytes # 0.9 10*3/uL (0.11-0.8); Monocytes % 7.9 % (1.7-12.7); NRBC # 0.03 10*3/uL; Neutrophils % 73.1 % (38.7-73.9); Platelet Count 268 T/CUMM (130-400); Red Blood Count 4.38 MC/CUMM (3.8-5.5); Red Cell Distribution Width 18.6 % (9.3-17.3); White Blood Count 11.2 T/CUMM (4-12)
[2021-11-12 05:07] LABS: Alanine Aminotransferase 36 U/L (13-56); Albumin 2.4 G/DL (3.4-5.0); Alkaline Phosphatase 80 U/L (45-117); Aspartate Amino Transferase 19 U/L (0-37); Bilirubin,Total < 0.39 MG/DL (0.20-1.00); Blood Urea Nitrogen 26 MG/DL (7-18); Calcium 8.6 MG/DL (8.5-10.1); Carbon Dioxide 28 MMOL/L (21-32); Chloride 110 MMOL/L (98-107); Glucose 187 MG/DL (74-106); Potassium 4.4 MMOL/L (3.5-5.1); Sodium 143 MMOL/L (136-145)
[2021-11-12 05:08] LABS: Band Neutrophils 1 % (0-10); Lymphocytes 12 % (20-55); Nucleated Red Blood Cells 1 (0-5); Platelet Estimate Adequate; Total Cells Counted 100
[2021-11-12 05:09] LABS: Hypochromia Slight; Microcytosis Slight
[2021-11-12] MEDS: LEVOTHYROXINE 100 MCG TABLET PO SCH (06:04)
[2021-11-12] MEDS: ROSUVASTATIN 20 MG TABLET PO SCH (09:31)
[2021-11-12] MEDS: INSULIN LISPRO 100 UNIT/ML SUBCUT SCH ×4 (09:32→21:55)
[2021-11-12] MEDS: guaiFENesin/DM ER 600-30 MG TABLET PO SCH ×2 (09:32→21:56)
[2021-11-12] MEDS: GABAPENTIN 300 MG CAPSULE PO SCH ×3 (09:32→21:56)
[2021-11-12] MEDS: CETIRIZINE 10 MG TABLET PO SCH ×2 (09:32→21:56)
[2021-11-12] MEDS: MONTELUKAST 10 MG TABLET PO SCH (09:32)
[2021-11-12] MEDS: PANTOPRAZOLE 40 MG TABLET PO SCH ×2 (09:32→21:56)
[2021-11-12] MEDS: predniSONE 20 MG TABLET PO SCH (09:32)
[2021-11-12] MEDS: FAMOTIDINE 20 MG TABLET PO SCH ×2 (09:32→21:56)
[2021-11-12] MEDS: AMITRIPTYLINE 10 MG TABLET PO SCH ×2 (09:32→21:56)
[2021-11-12] MEDS: NICOTINE 14 MG/24 HR PATCH TRANSDERM SCH (09:34)
[2021-11-12] MEDS: BUDESONIDE/FORMOTEROL 160-4.5 INHALER 6 GM INH SCH ×2 (09:41→21:57)
[2021-11-12] MEDS: METOPROLOL SUCCINATE XL 50 MG TABLET PO SCH (16:35)
[2021-11-12] MEDS: cefTRIAXone 1,000 MG in SODIUM CHLORIDE 0.9% 100 ML IV SCH (17:42)
[2021-11-12] MEDS: rOPINIRole 1 MG TABLET PO SCH (21:56)
[2021-11-12] MEDS: ZALEPLON 5 MG CAPSULE PO PRN (21:56)
[2021-11-13] MEDS: ALBUTEROL/IPRATROPIUM 3 ML NEB RESP TX SCH ×3 (00:53→13:31)
[2021-11-13] MEDS: LEVOTHYROXINE 100 MCG TABLET PO SCH (05:47)
[2021-11-13 06:27] LABS: Alanine Aminotransferase 37 U/L (13-56); Albumin 2.4 G/DL (3.4-5.0); Alkaline Phosphatase 87 U/L (45-117); Aspartate Amino Transferase 17 U/L (0-37); Bilirubin,Total < 0.39 MG/DL (0.20-1.00); Blood Urea Nitrogen 23 MG/DL (7-18); Calcium 9.6 MG/DL (8.5-10.1); Carbon Dioxide 29 MMOL/L (21-32); Chloride 111 MMOL/L (98-107); Glucose 144 MG/DL (74-106); Osmolality,Calculated 296.6 MOS/KG (273-304); Potassium 3.1 MMOL/L (3.5-5.1); Sodium 146 MMOL/L (136-145); Total Protein 5.7 G/DL (6.4-8.2)
[2021-11-13] MEDS ORDERED: POTASSIUM CHLORIDE 20 MEQ TABLET PO ONE ×2 (06:37→08:59)
[2021-11-13] MEDS: INSULIN LISPRO 100 UNIT/ML SUBCUT SCH ×2 (09:47→12:37)
[2021-11-13] MEDS: guaiFENesin/DM ER 600-30 MG TABLET PO SCH (10:03)
[2021-11-13] MEDS: METOPROLOL SUCCINATE XL 50 MG TABLET PO SCH (10:03)
[2021-11-13] MEDS: PANTOPRAZOLE 40 MG TABLET PO SCH (10:03)
[2021-11-13] MEDS: predniSONE 20 MG TABLET PO SCH (10:03)
[2021-11-13] MEDS: ROSUVASTATIN 20 MG TABLET PO SCH (10:03)
[2021-11-13] MEDS: CETIRIZINE 10 MG TABLET PO SCH (10:04)
[2021-11-13] MEDS: NICOTINE 14 MG/24 HR PATCH TRANSDERM SCH (10:04)
[2021-11-13] MEDS: AMITRIPTYLINE 10 MG TABLET PO SCH (10:04)
[2021-11-13] MEDS: MONTELUKAST 10 MG TABLET PO SCH (10:04)
[2021-11-13] MEDS: GABAPENTIN 300 MG CAPSULE PO SCH ×2 (10:04→17:10)
[2021-11-13] MEDS: BUDESONIDE/FORMOTEROL 160-4.5 INHALER 6 GM INH SCH (10:05)
[2021-11-13] MEDS: FAMOTIDINE 20 MG TABLET PO SCH (10:08)
[2021-11-13 11:25] LABS: Basophils # 0.1 10*3/uL (0.0-0.2); Basophils % 0.6 % (0.0-0.8); Eosinophils % 0.3 % (0.00-10.9); Hematocrit 38.3 VOL% (35.7-47.0); Hemoglobin 11.7 GM/DL (12.0-16.0); Immature Granulocytes % 6.2 %; Immature Granulocytes Absolute 0.86 #; Lymphocytes # 2.9 10*3/uL (1.4-4.0); Lymphocytes % 20.5 % (21.3-54.2); Mean Corpuscular HGB Conc 30.5 GM/DL (32-36); Mean Corpuscular Volume 87.8 FL (87-102); Mean Platelet Volume 9.9 FL (9.6-12.0); Monocytes # 1.2 10*3/uL (0.11-0.8); Monocytes % 8.7 % (1.7-12.7); Neutrophils % 63.7 % (38.7-73.9); Platelet Count 293 T/CUMM (130-400); Red Blood Count 4.36 MC/CUMM (3.8-5.5); White Blood Count 13.9 T/CUMM (4-12)
[2021-11-13 11:59] LABS: Hypochromia Slight; Lymphocytes 22 % (20-55); Platelet Estimate Adequate; Total Cells Counted 100
[2021-11-13 12:19] VITALS: BP 129/83
[2021-11-14] MEDS ORDERED: predniSONE 20 MG TABLET PO SCH (09:00)
[2021-11-16] MEDS ORDERED: APIXABAN 5 MG TABLET PO SCH (09:00)
== END 2021-11-13 17:18 | disposition home or self-care (01) | DRG 176 ==
LOC: N.ED 10:20 → N.CC 14:09 → SUATTDRO 14:09 → N.CC 16:10 → N.TELEN 11-08 18:03
PROVIDERS: ADMIT Internal Medicine; ATTEND Hospitalist

== ENCOUNTER 2022-01-05 10:38 | Observation (INO) ==
[2022-01-05] MEDS ORDERED: HYDROmorphone 1 MG/1 ML SYRINGE IV STA (11:40)
[2022-01-05] MEDS ORDERED: SODIUM CHLORIDE 0.9% 1,000 ML IV STA ×2 (11:40→15:07)
[2022-01-05] MEDS ORDERED: ONDANSETRON 4 MG/2 ML VIAL IV STA (11:40)
[2022-01-05 12:07] LABS: Basophils # 0.1 10*3/uL (0.0-0.2); Basophils % 0.7 % (0.0-0.8); Eosinophils # 0.2 10*3/uL (0.0-0.87); Eosinophils % 2.1 % (0.00-10.9); Hematocrit 35.7 VOL% (35.7-47.0); Hemoglobin 10.9 GM/DL (12.0-16.0); Immature Granulocytes % 1.1 %; Immature Granulocytes Absolute 0.09 #; Lymphocytes # 2.7 10*3/uL (1.4-4.0); Lymphocytes % 32.9 % (21.3-54.2); Mean Corpuscular HGB Conc 30.5 GM/DL (32-36); Mean Corpuscular Volume 90.8 FL (87-102); Mean Platelet Volume 9.9 FL (9.6-12.0); Monocytes # 1.1 10*3/uL (0.11-0.8); Monocytes % 12.7 % (1.7-12.7); NRBC # 0.02 10*3/uL; Neutrophils % 50.5 % (38.7-73.9); Platelet Count 327 T/CUMM (130-400); Red Blood Count 3.93 MC/CUMM (3.8-5.5); Red Cell Distribution Width 20.7 % (9.3-17.3); White Blood Count 8.3 T/CUMM (4-12)
[2022-01-05 12:15] LABS: PT Patient Result 10.9 SECS (10.1-12.1); Partial Thromboplastin Time 26.2 SECS (23.7-32.9)
[2022-01-05 12:33] LABS: Alanine Aminotransferase 28 U/L (13-56); Albumin 2.5 G/DL (3.4-5.0); Alkaline Phosphatase 65 U/L (45-117); Aspartate Amino Transferase 20 U/L (0-37); Bilirubin,Total < 0.39 MG/DL (0.20-1.00); Blood Urea Nitrogen 8 MG/DL (7-18); Carbon Dioxide 27 MMOL/L (21-32); Chloride 113 MMOL/L (98-107); Glucose 88 MG/DL (74-106); Osmolality,Calculated 282.8 MOS/KG (273-304); Potassium 4.4 MMOL/L (3.5-5.1); Sodium 144 MMOL/L (136-145); Total Protein 5.4 G/DL (6.4-8.2)
[2022-01-05 12:40] LABS: Mucus,Urine Occasional /LPF (Occasional); RBC,Urine 5 /HPF (0-4); Squamous Epithelial Cell,Urine Few /HPF (0-10)
[2022-01-05 12:41] LABS: Bilirubin,Urine Negative (Negative); Blood, Urine Negative (Negative); Glucose,Urine (UA) Negative (Negative); Ketones,Urine Negative (Negative); Nitrite,Urine Negative (Negative); Protein,Urine Trace mg/dL (Negative); Urine Appearance Clear (Clear); Urine Color Yellow (Yellow); Urine Specific Gravity 1.025 (1.001-1.035); Urine Urobilinogen 0.2 eU/dL (<2.0)
[2022-01-05] MEDS ORDERED: GLUCAGON 1 MG VIAL IM PRN (16:59)
[2022-01-05] MEDS ORDERED: ONDANSETRON 4 MG/2 ML VIAL IV PRN (16:59)
[2022-01-05] MEDS ORDERED: ACETAMINOPHEN 325 MG TABLET PO PRN (16:59)
[2022-01-05] MEDS ORDERED: SODIUM CHLORIDE 0.45% 1,000 ML IV SCH (17:00)
[2022-01-05] MEDS ORDERED: DEXTROSE 10% 250 ML BAG IV PRN (17:13)
[2022-01-05] MEDS: PIPERACILLIN/TAZOBACTAM 3,375 MG in SODIUM CHLORIDE 0.9% 100 ML IV SCH (18:13)
[2022-01-05] MEDS: SODIUM CHLORIDE 0.9% 1,000 ML IV SCH (21:56)
[2022-01-06] MEDS ORDERED: ALBUTEROL/IPRATROPIUM 3 ML NEB RESP TX PRN (01:00)
[2022-01-06] MEDS: PIPERACILLIN/TAZOBACTAM 3,375 MG in SODIUM CHLORIDE 0.9% 100 ML IV SCH ×3 (02:22→17:38)
[2022-01-06 04:00] LABS: Basophils # 0.1 10*3/uL (0.0-0.2); Basophils % 0.6 % (0.0-0.8); Eosinophils # 0.2 10*3/uL (0.0-0.87); Eosinophils % 3.1 % (0.00-10.9); Hematocrit 32.6 VOL% (35.7-47.0); Hemoglobin 9.6 GM/DL (12.0-16.0); Immature Granulocytes % 0.9 %; Immature Granulocytes Absolute 0.07 #; Lymphocytes # 2.7 10*3/uL (1.4-4.0); Lymphocytes % 34.9 % (21.3-54.2); Mean Corpuscular HGB Conc 29.4 GM/DL (32-36); Mean Corpuscular Volume 92.9 FL (87-102); Mean Platelet Volume 9.2 FL (9.6-12.0); Monocytes # 1.1 10*3/uL (0.11-0.8); Monocytes % 13.8 % (1.7-12.7); Neutrophils % 46.7 % (38.7-73.9); Platelet Count 330 T/CUMM (130-400); Red Blood Count 3.51 MC/CUMM (3.8-5.5); Red Cell Distribution Width 20.4 % (9.3-17.3); White Blood Count 7.7 T/CUMM (4-12)
[2022-01-06 04:23] LABS: Calcium 8.3 MG/DL (8.5-10.1); Potassium 3.7 MMOL/L (3.5-5.1)
[2022-01-06] MEDS: LEVOTHYROXINE 100 MCG TABLET PO SCH (06:07)
[2022-01-06] MEDS ORDERED: ALBUTEROL 2.5 MG/3 ML NEB RESP TX PRN (07:42)
[2022-01-06] MEDS ORDERED: NITROGLYCERIN SL 0.4 MG TABLET SL PRN (08:00)
[2022-01-06] MEDS: GABAPENTIN 300 MG CAPSULE PO SCH ×3 (08:26→20:10)
[2022-01-06] MEDS: DULoxetine 30 MG CAPSULE PO SCH (08:27)
[2022-01-06] MEDS: MONTELUKAST 10 MG TABLET PO SCH (08:27)
[2022-01-06] MEDS: SUCRALFATE 1 GM TABLET PO SCH ×4 (08:27→20:10)
[2022-01-06] MEDS: HYDROmorphone 1 MG/1 ML SYRINGE IV PRN ×3 (08:28→20:08)
[2022-01-06] MEDS: SODIUM CHLORIDE 0.9% 1,000 ML IV SCH ×2 (08:29→17:38)
[2022-01-06] MEDS: BUDESONIDE/FORMOTEROL 160-4.5 INHALER 6 GM INH SCH ×2 (08:30→20:18)
[2022-01-06] MEDS: CETIRIZINE 10 MG TABLET PO SCH ×2 (08:33→20:10)
[2022-01-06] MEDS: LIDOCAINE 5% PATCH TRANSDERM SCH (13:28)
[2022-01-06] MEDS: NICOTINE 21 MG/24 HR PATCH TRANSDERM SCH (20:10)
[2022-01-06] MEDS ORDERED: AMITRIPTYLINE 10 MG TABLET PO SCH (21:00)
[2022-01-06] MEDS ORDERED: ROSUVASTATIN 20 MG TABLET PO SCH (21:00)
[2022-01-07] MEDS: PIPERACILLIN/TAZOBACTAM 3,375 MG in SODIUM CHLORIDE 0.9% 100 ML IV SCH ×2 (01:14→11:07)
[2022-01-07] MEDS: SODIUM CHLORIDE 0.9% 1,000 ML IV SCH (04:36)
[2022-01-07] MEDS: HYDROmorphone 1 MG/1 ML SYRINGE IV PRN ×2 (04:36→08:41)
[2022-01-07 04:55] LABS: Risk Ratio 2.36; VLDL Cholesterol 22.6 MG/DL
[2022-01-07] MEDS: LEVOTHYROXINE 100 MCG TABLET PO SCH (06:25)
[2022-01-07 07:41] LABS: Basophils # 0.1 10*3/uL (0.0-0.2); Basophils % 0.7 % (0.0-0.8); Eosinophils # 0.2 10*3/uL (0.0-0.87); Eosinophils % 2.2 % (0.00-10.9); Hematocrit 32.9 VOL% (35.7-47.0); Hemoglobin 9.9 GM/DL (12.0-16.0); Immature Granulocytes % 0.6 %; Immature Granulocytes Absolute 0.05 #; Lymphocytes # 2.5 10*3/uL (1.4-4.0); Lymphocytes % 31.2 % (21.3-54.2); Mean Corpuscular HGB Conc 30.1 GM/DL (32-36); Mean Corpuscular Volume 91.1 FL (87-102); Mean Platelet Volume 9.4 FL (9.6-12.0); Monocytes % 12.2 % (1.7-12.7); NRBC # 0.02 10*3/uL; Neutrophils % 53.1 % (38.7-73.9); Platelet Count 355 T/CUMM (130-400); Red Blood Count 3.61 MC/CUMM (3.8-5.5); Red Cell Distribution Width 20.3 % (9.3-17.3); White Blood Count 8.1 T/CUMM (4-12)
[2022-01-07 07:49] LABS: Calcium 8.7 MG/DL (8.5-10.1); Osmolality,Calculated 278.3 MOS/KG (273-304); Potassium 3.9 MMOL/L (3.5-5.1)
[2022-01-07] MEDS: LIDOCAINE 5% PATCH TRANSDERM SCH (08:35)
[2022-01-07] MEDS: CETIRIZINE 10 MG TABLET PO SCH (08:36)
[2022-01-07] MEDS: MONTELUKAST 10 MG TABLET PO SCH (08:36)
[2022-01-07] MEDS: GABAPENTIN 300 MG CAPSULE PO SCH ×2 (08:36→15:45)
[2022-01-07] MEDS: DULoxetine 30 MG CAPSULE PO SCH (08:36)
[2022-01-07] MEDS: SUCRALFATE 1 GM TABLET PO SCH ×2 (08:37→12:04)
[2022-01-07] MEDS: NICOTINE 21 MG/24 HR PATCH TRANSDERM SCH (08:37)
[2022-01-07] MEDS: BUDESONIDE/FORMOTEROL 160-4.5 INHALER 6 GM INH SCH (08:38)
[2022-01-07] MEDS ORDERED: LIDOCAINE 1% 20 ML VIAL MISC INJ ONE (12:30)
[2022-01-07] MEDS ORDERED: DEXAMETHASONE 10 MG/1 ML VIAL MISC INJ ONE (12:30)
[2022-01-07] MEDS ORDERED: DEXTROSE 10% 250 ML BAG IV PRN (12:52)
[2022-01-07 15:38] VITALS: BP 123/86
[2022-01-07] MEDS ORDERED: APIXABAN 5 MG TABLET PO SCH (21:00)
[2022-01-07] MEDS ORDERED: PANTOPRAZOLE 40 MG TABLET PO SCH (21:00)
== END 2022-01-07 16:17 | disposition home or self-care (01) ==
LOC: N.EDINP 10:38 → N.ED 10:38 → N.2W 17:48
PROVIDERS: ADMIT Internal Medicine; ATTEND Internal Medicine

== ENCOUNTER 2022-03-31 08:02 | Inpatient (IN) ==
[2022-03-30 13:41] LABS: Basophils # 0.1 10*3/uL (0.0-0.2); Basophils % 0.6 % (0.0-0.8); Eosinophils # 0.2 10*3/uL (0.0-0.87); Eosinophils % 2.1 % (0.00-10.9); Hematocrit 42.4 VOL% (35.7-47.0); Immature Granulocytes % 0.4 %; Immature Granulocytes Absolute 0.04 #; Lymphocytes # 3.4 10*3/uL (1.4-4.0); Lymphocytes % 36.5 % (21.3-54.2); Mean Corpuscular HGB Conc 30.7 GM/DL (32-36); Mean Platelet Volume 9.6 FL (9.6-12.0); Monocytes % 10.2 % (1.7-12.7); Neutrophils % 50.2 % (38.7-73.9); Platelet Count 274 T/CUMM (130-400); Red Blood Count 4.71 MC/CUMM (3.8-5.5); Red Cell Distribution Width 14.6 % (9.3-17.3); White Blood Count 9.4 T/CUMM (4-12)
[2022-03-30 14:12] LABS: Alanine Aminotransferase 29 U/L (13-56); Albumin 3.2 G/DL (3.4-5.0); Alkaline Phosphatase 111 U/L (45-117); Aspartate Amino Transferase 24 U/L (0-37); Bilirubin,Total < 0.39 MG/DL (0.20-1.00); Blood Urea Nitrogen 15 MG/DL (7-18); Calcium 9.8 MG/DL (8.5-10.1); Carbon Dioxide 27 MMOL/L (21-32); Chloride 111 MMOL/L (98-107); Glucose 110 MG/DL (74-106); Potassium 3.6 MMOL/L (3.5-5.1); Sodium 143 MMOL/L (136-145); Total Protein 6.8 G/DL (6.4-8.2)
[~2022-03-31 08:02] MED LIST: ceFAZolin 2,000 MG/50 ML DUPLEX IV ONE
[2022-03-31] MEDS ORDERED: FAMOTIDINE 20 MG TABLET PO ONE (08:56)
[2022-03-31] MEDS ORDERED: ACETAMINOPHEN 500 MG TABLET PO ONE (08:56)
[2022-03-31] MEDS ORDERED: GABAPENTIN 400 MG CAPSULE PO ONE (08:56)
[2022-03-31] MEDS ORDERED: DIAZEPAM 5 MG TABLET PO ONE (08:56)
[2022-03-31] MEDS ORDERED: SCOPOLAMINE 1.5 MG PATCH TRANSDERM ONE (08:56)
[2022-03-31] MEDS ORDERED: ALBUTEROL 2.5 MG/3 ML NEB RESP TX ONE (08:56)
[2022-03-31] MEDS ORDERED: LACTATED RINGERS 1,000 ML IV SCH (09:00)
[2022-03-31] MEDS ORDERED: fentaNYL 100 MCG/2 ML VIAL ONE (09:43)
[2022-03-31] MEDS ORDERED: ONDANSETRON 4 MG/2 ML VIAL ONE (10:33)
[2022-03-31] MEDS ORDERED: propofoL 200 MG/20 ML VIAL IV ONE (10:33)
[2022-03-31] MEDS ORDERED: ROCURONIUM 50 MG/5 ML VIAL IV ONE ×2 (10:33→11:54)
[2022-03-31] MEDS ORDERED: LIDOCAINE 2% 5 ML VIAL ONE (10:33)
[2022-03-31] MEDS ORDERED: ePHEDrine 50 MG/ML VIAL ONE (10:54)
[2022-03-31] MEDS ORDERED: SEVOFLURANE 1 UNIT/15 MINUTE INH ONE (10:57)
[2022-03-31] MEDS ORDERED: PHENYLEPHRINE 10 MG/1 ML VIAL IV ONE (11:10)
[2022-03-31] MEDS ORDERED: SODIUM CHLORIDE 0.9% 100 ML IV ONE (11:48)
[2022-03-31] MEDS ORDERED: SUGAMMADEX 200 MG/2 ML VIAL IV ONE (11:53)
[2022-03-31] MEDS ORDERED: rOPINIRole 0.25 MG TABLET PO PRN (12:34)
[2022-03-31] MEDS ORDERED: HYDROmorphone 1 MG/1 ML SYRINGE IV PRN (12:34)
[2022-03-31] MEDS ORDERED: NITROGLYCERIN SL 0.4 MG TABLET SL SCH (12:34)
[2022-03-31] MEDS ORDERED: ALBUTEROL 2.5 MG/3 ML NEB RESP TX PRN (12:34)
[2022-03-31] MEDS ORDERED: ONDANSETRON 4 MG/2 ML VIAL IV PRN ×2 (12:34→12:35)
[2022-03-31] MEDS ORDERED: PROMETHAZINE 25 MG/1 ML VIAL IM PRN (12:34)
[2022-03-31] MEDS ORDERED: ALBUTEROL/IPRATROPIUM 3 ML NEB RESP TX PRN (12:34)
[2022-03-31] MEDS ORDERED: PROMETHAZINE INJ 25 MG in SODIUM CHLORIDE 0.9% 50 ML IV PRN (12:35)
[2022-03-31] MEDS ORDERED: diphenhydrAMINE 50 MG/1 ML VIAL IV PRN (12:35)
[2022-03-31] MEDS ORDERED: KETOROLAC 30 MG/1 ML VIAL ONE (12:38)
[2022-03-31] MEDS: HYDROmorphone 1 MG/1 ML SYRINGE IV PRN ×2 (12:40→12:45)
[2022-03-31] MEDS: LACTATED RINGERS 1,000 ML IV SCH (12:54)
[2022-03-31] MEDS: KETOROLAC 15 MG/1 ML VIAL IV SCH ×2 (12:54→17:51)
[2022-03-31] MEDS ORDERED: ALBUTEROL/IPRATROPIUM 3 ML NEB RESP TX ONE ×2 (13:25→13:30)
[2022-03-31 13:36] LABS: Calcium 9.3 MG/DL (8.5-10.1); Osmolality,Calculated 283.1 MOS/KG (273-304); Potassium 3.8 MMOL/L (3.5-5.1)
[2022-03-31 14:10] LABS: Basophils % 0.3 % (0.0-0.8); Eosinophils # 0.1 10*3/uL (0.0-0.87); Eosinophils % 0.9 % (0.00-10.9); Hematocrit 44.3 VOL% (35.7-47.0); Hemoglobin 13.2 GM/DL (12.0-16.0); Immature Granulocytes % 0.4 %; Immature Granulocytes Absolute 0.06 #; Lymphocytes # 2.2 10*3/uL (1.4-4.0); Lymphocytes % 15.6 % (21.3-54.2); Mean Corpuscular HGB Conc 29.8 GM/DL (32-36); Mean Corpuscular Volume 91.2 FL (87-102); Mean Platelet Volume 10.8 FL (9.6-12.0); Monocytes # 1.3 10*3/uL (0.11-0.8); Monocytes % 9.1 % (1.7-12.7); Neutrophils % 73.7 % (38.7-73.9); Platelet Count 220 T/CUMM (130-400); Red Blood Count 4.86 MC/CUMM (3.8-5.5); Red Cell Distribution Width 14.6 % (9.3-17.3); White Blood Count 13.8 T/CUMM (4-12)
[2022-03-31] MEDS ORDERED: rOPINIRole 1 MG TABLET PO PRN (15:30)
[2022-03-31] MEDS: SUCRALFATE 1 GM TABLET PO SCH ×3 (15:46→21:48)
[2022-03-31] MEDS: METOPROLOL SUCCINATE XL 50 MG TABLET PO SCH (15:46)
[2022-03-31] MEDS: GABAPENTIN 300 MG CAPSULE PO SCH ×2 (16:24→21:48)
[2022-03-31] MEDS ORDERED: BUDESONIDE/FORMOTEROL 160-4.5 INHALER 6 GM INH SCH (21:00)
[2022-03-31] MEDS ORDERED: AMITRIPTYLINE 10 MG TABLET PO SCH (21:00)
[2022-03-31] MEDS: PANTOPRAZOLE 40 MG TABLET PO SCH (21:48)
[2022-03-31] MEDS: CETIRIZINE 10 MG TABLET PO SCH (21:48)
[2022-04-01] MEDS: KETOROLAC 15 MG/1 ML VIAL IV SCH ×3 (02:14→03:22)
[2022-04-01] MEDS: LACTATED RINGERS 1,000 ML IV SCH (03:23)
[2022-04-01 05:34] LABS: Basophils % 0.3 % (0.0-0.8); Eosinophils # 0.3 10*3/uL (0.0-0.87); Eosinophils % 2.8 % (0.00-10.9); Hematocrit 39.8 VOL% (35.7-47.0); Immature Granulocytes % 0.4 %; Immature Granulocytes Absolute 0.04 #; Lymphocytes % 20.4 % (21.3-54.2); Mean Corpuscular HGB Conc 30.2 GM/DL (32-36); Mean Corpuscular Volume 90.7 FL (87-102); Mean Platelet Volume 9.8 FL (9.6-12.0); Monocytes % 10.6 % (1.7-12.7); Neutrophils % 65.5 % (38.7-73.9); Platelet Count 239 T/CUMM (130-400); Red Blood Count 4.39 MC/CUMM (3.8-5.5); Red Cell Distribution Width 14.4 % (9.3-17.3); White Blood Count 9.7 T/CUMM (4-12)
[2022-04-01 05:46] LABS: Calcium 8.6 MG/DL (8.5-10.1); Potassium 3.9 MMOL/L (3.5-5.1)
[2022-04-01] MEDS ORDERED: FAMOTIDINE 20 MG TABLET PO SCH (09:00)
[2022-04-01] MEDS ORDERED: LEVOTHYROXINE 100 MCG TABLET PO SCH (09:00)
[2022-04-01] MEDS ORDERED: ENOXAPARIN 40 MG/0.4 ML SYRINGE SUBCUT SCH (09:00)
[2022-04-01] MEDS ORDERED: DULoxetine 30 MG CAPSULE PO SCH (09:00)
[2022-04-01] MEDS ORDERED: IRON (CARBONYL)/VIT C/B12/FA TABLET PO SCH (09:00)
[2022-04-01] MEDS ORDERED: MONTELUKAST 10 MG TABLET PO SCH (09:00)
[2022-04-01] MEDS ORDERED: ROSUVASTATIN 20 MG TABLET PO SCH (09:00)
[2022-04-01] MEDS ORDERED: PANTOPRAZOLE 40 MG TABLET PO SCH (09:00)
[2022-04-01] MEDS: METOPROLOL SUCCINATE XL 50 MG TABLET PO SCH (10:44)
[2022-04-01] MEDS: CETIRIZINE 10 MG TABLET PO SCH (10:44)
[2022-04-01] MEDS: SUCRALFATE 1 GM TABLET PO SCH (10:45)
[2022-04-01] MEDS: GABAPENTIN 300 MG CAPSULE PO SCH (10:46)
[2022-04-01] MEDS: PANTOPRAZOLE 40 MG TABLET PO SCH (10:47)
[2022-04-01 12:11] VITALS: BP 136/73
== END 2022-04-01 11:00 | disposition home or self-care (01) | DRG 328 ==
LOC: N.OR 08:02 → N.SDSINP 08:06 → N.2W 14:23
PROVIDERS: ADMIT Surgery; ATTEND Surgery

== ENCOUNTER 2022-07-01 15:41 | Observation (INO) ==
[2022-07-01] MEDS ORDERED: SODIUM CHLORIDE 0.9% 1,000 ML IV STA (16:42)
[2022-07-01 16:44] LABS: Basophils # 0.1 10*3/uL (0.0-0.2); Basophils % 0.4 % (0.0-0.8); Eosinophils # 0.2 10*3/uL (0.0-0.87); Eosinophils % 1.5 % (0.00-10.9); Hematocrit 41.7 VOL% (35.7-47.0); Hemoglobin 12.9 GM/DL (12.0-16.0); Immature Granulocytes Absolute 0.12 #; Lymphocytes # 3.4 10*3/uL (1.4-4.0); Lymphocytes % 29.3 % (21.3-54.2); Mean Corpuscular HGB Conc 30.9 GM/DL (32-36); Mean Corpuscular Volume 89.1 FL (87-102); Mean Platelet Volume 9.8 FL (9.6-12.0); Monocytes # 1.1 10*3/uL (0.11-0.8); Neutrophils % 58.8 % (38.7-73.9); Platelet Count 324 T/CUMM (130-400); Red Blood Count 4.68 MC/CUMM (3.8-5.5); Red Cell Distribution Width 18.6 % (9.3-17.3); White Blood Count 11.61 T/CUMM (4-12)
[2022-07-01 16:57] LABS: INR 0.9; PT Patient Result 10.2 SECS (10.1-12.1); Partial Thromboplastin Time 26.1 SECS (23.7-32.9)
[2022-07-01 17:01] LABS: Alanine Aminotransferase 27 U/L (13-56); Albumin 2.8 G/DL (3.4-5.0); Alkaline Phosphatase 106 U/L (45-117); Aspartate Amino Transferase 27 U/L (0-37); Bilirubin,Total < 0.39 MG/DL (0.20-1.00); Blood Urea Nitrogen 16 MG/DL (7-18); Carbon Dioxide 25 MMOL/L (21-32); Chloride 115 MMOL/L (98-107); Glucose 118 MG/DL (74-106); Osmolality,Calculated 289.7 MOS/KG (273-304); Potassium 4.3 MMOL/L (3.5-5.1); Sodium 145 MMOL/L (136-145); Total Protein 6.1 G/DL (6.4-8.2)
[2022-07-01 17:16] LABS: Thyroid Stimulating Hormone 1.35 uIU/ml (0.358-3.74)
[2022-07-01 17:29] LABS: Bilirubin,Urine Negative (Negative); Blood, Urine Negative (Negative); Glucose,Urine (UA) Negative (Negative); Hyaline Casts,Urine 4 /LPF (0-3); Ketones,Urine Negative (Negative); Mucus,Urine Occasional /LPF (Occasional); Nitrite,Urine Negative (Negative); Protein,Urine Negative (Negative); RBC,Urine 1 /HPF (0-4); Squamous Epithelial Cell,Urine Occasional /HPF (0-10); Urine Appearance Clear (Clear); Urine Color Yellow (Yellow); Urine Specific Gravity > 1.030 (1.001-1.035); Urine Urobilinogen 0.2 eU/dL (<2.0); Urine pH 5.5 (4.5-8.0)
[2022-07-01] MEDS ORDERED: ACETAMINOPHEN 325 MG TABLET PO PRN (21:04)
[2022-07-01] MEDS ORDERED: hydrALAZINE 20 MG/1 ML VIAL IV PRN (21:04)
[2022-07-01] MEDS ORDERED: ALBUTEROL/IPRATROPIUM 3 ML NEB RESP TX PRN (21:04)
[2022-07-01] MEDS ORDERED: ONDANSETRON 4 MG/2 ML VIAL IV PRN (21:04)
[2022-07-01] MEDS ORDERED: ENOXAPARIN 80 MG/0.8 ML SYRINGE SUBCUT ONE (21:30)
[2022-07-01] MEDS: LACTATED RINGERS 1,000 ML IV SCH (21:55)
[2022-07-01] MEDS ORDERED: NICOTINE 7 MG/24 HR PATCH TRANSDERM PRN (22:11)
[2022-07-02] MEDS ORDERED: CETIRIZINE 10 MG TABLET PO PRN (01:20)
[2022-07-02] MEDS ORDERED: GABAPENTIN 300 MG CAPSULE PO PRN (01:20)
[2022-07-02] MEDS ORDERED: NITROGLYCERIN SL 0.4 MG TABLET SL PRN (01:30)
[2022-07-02] MEDS ORDERED: rOPINIRole 1 MG TABLET PO PRN (01:45)
[2022-07-02 04:35] VITALS: BP 115/74
[2022-07-02 05:58] LABS: Basophils % 0.4 % (0.0-0.8); Eosinophils # 0.2 10*3/uL (0.0-0.87); Eosinophils % 2.2 % (0.00-10.9); Hematocrit 39.2 VOL% (35.7-47.0); Hemoglobin 12.2 GM/DL (12.0-16.0); Immature Granulocytes % 0.6 %; Immature Granulocytes Absolute 0.05 #; Lymphocytes # 3.7 10*3/uL (1.4-4.0); Lymphocytes % 40.5 % (21.3-54.2); Mean Corpuscular HGB Conc 31.1 GM/DL (32-36); Mean Corpuscular Volume 88.7 FL (87-102); Mean Platelet Volume 9.9 FL (9.6-12.0); Monocytes % 10.5 % (1.7-12.7); Neutrophils % 45.8 % (38.7-73.9); Platelet Count 302 T/CUMM (130-400); Red Blood Count 4.42 MC/CUMM (3.8-5.5); Red Cell Distribution Width 18.3 % (9.3-17.3); White Blood Count 9.09 T/CUMM (4-12)
[2022-07-02] MEDS ORDERED: LEVOTHYROXINE 75 MCG TABLET PO SCH (06:00)
[2022-07-02 06:20] LABS: Calcium 8.6 MG/DL (8.5-10.1); Osmolality,Calculated 288.7 MOS/KG (273-304); Potassium 3.9 MMOL/L (3.5-5.1)
[2022-07-02] MEDS ORDERED: MONTELUKAST 10 MG TABLET PO SCH (09:00)
[2022-07-02] MEDS ORDERED: FAMOTIDINE 20 MG TABLET PO SCH (09:00)
[2022-07-02] MEDS ORDERED: PANTOPRAZOLE 40 MG TABLET PO SCH (09:00)
[2022-07-02] MEDS ORDERED: SPIRONOLACTONE 50 MG TABLET PO SCH (09:00)
[2022-07-02] MEDS ORDERED: DULoxetine 30 MG CAPSULE PO SCH (09:00)
[2022-07-02] MEDS ORDERED: METOPROLOL SUCCINATE XL 50 MG TABLET PO SCH (09:00)
[2022-07-02] MEDS ORDERED: BUDESONIDE/FORMOTEROL 160-4.5 INHALER 6 GM INH SCH (09:00)
[2022-07-02] MEDS ORDERED: ROSUVASTATIN 20 MG TABLET PO SCH (09:00)
[2022-07-02] MEDS ORDERED: IRON (CARBONYL)/VIT C/B12/FA TABLET PO SCH (09:00)
[2022-07-02] MEDS: SUCRALFATE 1 GM TABLET PO SCH ×2 (09:34→14:26)
[2022-07-02] MEDS: LACTATED RINGERS 1,000 ML IV SCH (11:11)
[2022-07-02] MEDS ORDERED: AMITRIPTYLINE 25 MG TABLET PO SCH (21:00)
== END 2022-07-02 14:30 | disposition home or self-care (01) ==
LOC: N.EDINP 15:41 → N.ED 15:41 → N.3E 23:05
PROVIDERS: ADMIT Internal Medicine; ATTEND Internal Medicine